=== PATIENT | male | born 1975 | race Caucasian/White ===

== ENCOUNTER 2023-07-27 09:14 | Outpatient (AMB) | payer OTHER, SELFPAY ==
[2023-07-27 09:15] VITALS: BP 112/70; PULSE 69; O2SAT 99; BMI 40.0
--- NOTE | 2023-07-27 09:15 | A.OFFPC_ITS ---
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 Accompanied by: Self / Same As Patient Allergies No Known Allergies Allergy (Verified 07/27/23 09:26) Medication List - Last Reconciled 07/27/23 by CAITLIN Milian alprazolam 0.5 mg PO DAILY 30 days citalopram 40 mg PO DAILY 90 days naproxen sodium (Aleve) 220 mg PO BID PRN Tobacco use date assessed: 07/27/23 Dental Screening Dental Screen Date: 07/27/23 Did you have a dental visit in the last 12 months?: Yes Did you have a dental problem in the last 6 months where you did not have access to dental care?: No Was dental information given to patient?: Patient has dentist HPI HPI Comments History of Present Illness Details 48-year-old male past medical history si gnificant for GERD, lumbar degenerative disc disease, impaired glucose tolerance generalized anxiety disorder, chronic tear of right biceps muscle. Patient last seen in April 2022, patient presents today for physical exam. Patient denies chest pain, palpitations, shortness of breath and syncope. Denies any acute concerns. Patient requesting refill on alprazolam that he uses as needed for anxiety, by Dr. Kingsley in 2020. Refill sent. Patient offered referral to counseling, however he declines this time. Eye exam: Due in October 2023 Colonoscopy: Referral entered for Gastroenterology. Patient up-to-date on recommended immunizations. [facility] Medical History (Updated 07/27/23 @ 09:42 by CAITLIN Milian) Tear of right biceps muscle Generalized anxiety disorder GERD (gastroesophageal reflux disease) Obesity (BMI 30-39.9) Lumbar degenerative disc disease Surgical History S/P panniculectomy History of hip surgery Hx of tonsillectomy S/P left inguinal herniorrhaphy Family History Mother COPD (chronic obstructive pulmonary disease) Father No problems noted. Maternal Grandmother Breast cancer Lung cancer Maternal Grandfather Leukemia Paternal Grandmother COPD (chronic obstructive pulmonary disease) Other Mental health disorder Social History Housing: House Alcohol intake: current Alcohol intake frequency: a few times a week Alcohol type: beer Patient Tobacco Use Status: Never used Tobacco e-Cigarette/Vaping Use: Never Used Second Hand Smoke Exposure: Yes service: No Current occupational status: employed Cognitive needs: No Hearing needs: No Vision needs: No Questionnaire PHQ-9 Over the last 2 weeks, how often have you been bothered by any of the following problems? 1. Little interest or pleasure in doing things: not at all 2. Feeling down, depressed, or hopeless: not at all 3. Trouble falling or staying asleep, or sleeping too much: not at all 4. Feeling tired or having little energy: not at all 5. Poor appetite or overeating: not at all 6. Feeling bad about yourself - or that you are a failure or have let yourself or your family down: not at all 7. Trouble concentrating on things, such as reading the newspaper or watching television: not at all 8. Moving or speaking so slowly that other people could have noticed. Or the opposite - being so fidgety or restless that you have been moving around a lot more than usual: not at all 9. Thoughts that you would be better off or of hurting yourself in some way: not at all Total score: 0 Depression Screening Interpretation: Negative 21610 - PHQ-9 Billing: Yes Source: Developed by Drs. Rohan Bueno, Luda Nails, Sincere Salazar and colleagues, with an educational avinash from [employer]. Thrive Questionnaire Date Thrive assessed: 07/27/23 I am a: Patient What is your living situation today?: I have a steady place to live Within the past 12 months, did the food you bought not last and you didn't have the money to get more?: Never true Within the past 12 months, did you worry whether your food would run out before you got money to buy more?: Never true Do you have trouble paying for medicines?: No Do you have trouble getting transportation to medical appointments?: No Do you have trouble paying your heating and electricity bill?: No Do you have trouble taking care of your child, family member or friend?: No Do you have trouble with day-to-day activities such as bathing, preparing meals, shopping, managing finances, etc.?: No Are you currently unemployed and looking for a job?: No Are you interested in more education?: No Please select the resources that you would like help with: None Currently or been in a relationship where the following occur: no concerns reported AUDIT C Alcohol Use Questionnaire (AUDIT-C) 1. How often do you have a drink containing alcohol?: 2-3 times a week 2. How many drinks containing alcohol do you have on a typical day when you are drinking?: 1 or 2 3. How often do you have six or more drinks on one occasion?: Never Total Score: 3 LATRELL-7 AMB Questionnaire LATRELL-7 Date LATRELL - 7 assessed: 07/27/23 Feeling nervous, anxious, or on edge: 0 = Not at all Not being able to stop or control worryin = Not at all Worrying too much about different things: 0 = Not at all Trouble relaxin = Not at all Being so restless that it is hard to sit still: 0 = Not at all Becoming easily annoyed or irritable: 0 = Not at all Feeling afraid as if something awful might happen: 0 = Not at all Total LATRELL-7 score (0-4 normal; 5-9 mild; 10-14 moderate; 15-21 severe): 0 Source: Developed by Drs. Rohan Bueno, Luda Nails, Sincere Salazar and colleagues, with an educational avinash from [employer]. LATRELL-7 Assessment Billing LATRELL-7 Assessment Tool: LATRELL-7 Assessment 94971 Review of Systems Const Denies chills, Denies fatigue, Denies fever(s) and Denies poor appetite Eyes Denies no additional complaints ENT Reports Normal hearing present Card Denies chest pain, Denies syncope, Denies rapid heart rate and Denies dyspnea Resp Denies cough and Denies dyspnea GI Denies change in stool character, Denies constipation, Denies diarrhea, Denies nausea and Denies vomiting Denies dysuria, Denies urinary frequency and Denies urinary urgency Neuro Reports Normal hearing present, Denies confusion and Denies syncope Psych Denies confusion Endo Denies fatigue Physical exam (Primary Care) Vital Signs: Last Vital Signs Pulse 69 07/27/23 09:15 BP 112/70 07/27/23 09:15 Pulse Ox 99 07/27/23 09:15 Oxygen Delivery Method Room Air 07/27/23 09:15 BMI result Body Mass Index 40.0 Tobacco/Smoking Status: Tobacco use Status Tobacco use date assessed 07/27/23 07/27/23 09:16 Patient Tobacco Use Status Never used Tobacco 07/27/23 09:16 e-Cigarette/Vaping Use Never Used 07/27/23 09:16 PHQ-9: PHQ-9 Score PHQ-9: Total score 0 07/27/23 09:17 Depression Screening Interpretation: Negative Thrive Assessment: Date of Thrive Assessment Date Thrive assessed 07/27/23 07/27/23 09:17 Currently or been in a relationship where the following occur: no concerns reported Const General: No confusion Orientation/consciousness: No confusion HENMT Head: Yes normocephalic and Yes atraumatic Ears: external ears normal and TM's normal bilaterally General nose exam: Normal external nose present and Normal nasal mucous membranes and turbinates present Face and sinus: Yes normal facial exam and Yes sinuses nontender Mouth: moist mucous membranes Throat: Yes tonsils normal Eyes Conjunctivae: conjunctivae normal Sclerae: sclerae normal Pupils: Equal, round and reactive pupils present and Pupils normal by confrontation EOM: EOMs intact bilaterally Direct Ophthalmoscopy: normal light reflex Neck Neck: Yes no lymphadenopathy and Yes supple Thyroid: Thyroid normal Chest Chest palpation & inspection: normal inspection of the chest Resp Effort & Inspection: normal respiratory effort Auscultation: clear to auscultation bilaterally, no crackles, no rhonchi and no wheezes Cardio Rate: regular rate Rhythm: regular rhythm Peripheral pulses: radial pulses present and dorsalis pedis present GI Inspection: Yes normal to inspection Palpation (GI): Soft to palpation, nontender and No hepatosplenomegaly present Auscultation: normoactive bowel sounds Skin General skin exam: no rashes or lesions noted Neuro General: No confusion Cranial nerves: Yes Equal, round and reactive pupils present and Yes Normal hearing present Cognition (Neuro): normal cognition Gait exam (Neuro): Normal gait present Motor exam (neuro): 5/5 motor strength present throughout Deep tendon reflexes (DTR's): Right brachioradialis reflex intensity grade: 2+, Left brachioradialis reflex intensity grade: 2+, Right patellar reflex intensity grade: 2+ and Left patellar reflex intensity grade: 2+ Extrem General: No edema Assessment and Plan Assessment & Plan (1) Colon cancer screening: Code(s): Z12.11 - Encounter for screening for malignant neoplasm of colon Plan: Referral entered to gastroenterology. (2) Impaired glucose tolerance: Code(s): R73.02 - Impaired glucose tolerance (oral) Plan: Fasting glucose ordered. (3) Generalized anxiety disorder: Comment: Declined any referral for counseling August Code(s): F41.1 - Generalized anxiety disorder Plan: Continue on citalopram 40 mg daily. Refill sent on alprazolam 0.5 mg daily as needed QT 30, 0 refills Offered referral for counseling however patient declines this time. (4) Annual physical exam: Code(s): Z00.00 - Encounter for general adult medical examination without abnormal findings Plan: Follow-up in 1 year for physical exam. (5) Obesity (BMI 30-39.9): Code(s): E66.9 - Obesity, unspecified Plan: Encouraged diet and exercise to reduce BMI. Offered referral for weight management program, however patient declines at this time. Plan Follow-up in 1 year. Orders: Orders Comprehensive Met. Panel Today R73.02 - Impaired glucose tolerance (oral) Lipid Panel Today Z13.220 - Encounter for screening for lipoid disorders TSH reflex Free T4 Today Z13.29 - Encounter for screening for other suspected endocrine disorder Complete Blood Count Auto Diff Today Z13.0 - Encounter for screening for diseases of the blood and blood-forming organs and certain disorders involving the immune mechanism Referrals Gastroenterology Referral Z12.11 - Encounter for screening for malignant neoplasm of colon Medications: Refilled alprazolam 0.5 mg PO DAILY 30 days 30 tabs 0RF F41.1 - Generalized anxiety disorder Coding Level of Care Code Est Pt Prev Care 40-64y(35113) Diagnoses Colon cancer screening Z12.11 Impaired glucose tolerance R73.02 Generalized anxiety disorder F41.1 Annual physical exam Z00.00 Obesity (BMI 30-39.9) E66.9 Additional Codes LATRELL-7 Assessment Billing - LATRELL-7 Assessment Tool: LATRELL-7 Assessment 52492 ([id number])
== END 2023-07-27 09:37 | disposition home or self-care (01) ==
PROVIDERS: PCP Internal Medicine; Visit Provider Nurse Practitioner Family
DX: Z00.00 Encounter for general adult medical examination without abnormal findings (principal); R73.02 Impaired glucose tolerance (oral); E66.9 Obesity, unspecified; Z68.41 Body mass index [BMI] 40.0-44.9, adult; F41.1 Generalized anxiety disorder
CPT/HCPCS: 99396

== ENCOUNTER 2023-09-15 07:51 | Outpatient (AMB) | payer OTHER, SELFPAY ==
--- NOTE | 2023-09-15 08:00 | MHC.OFFVIS ---
Intake Vital Signs 09/15/23 08:01 Height 5 ft 10 in Weight 283 lb BMI 40.6 BP 140/83 H Blood Pressure Location Lt brachial Position Sitting Pulse 79 Intake Visit Reasons: Colonoscopy Screening Intake Note: Patient new consult for 1st pre colonoscopy. Patient cc: acid reflex on and off. Denies any other GI issues. Control Room Operator Required: No Accompanied by: Self / Same As Patient Allergies No Known Allergies Allergy (Verified 09/15/23 07:59) Medication List - Last Reconciled 09/15/23 by Destini Love PA-C alprazolam 0.5 mg PO DAILY 30 days citalopram 40 mg PO DAILY 90 days naproxen sodium (Aleve) 220 mg PO BID PRN HPI HPI Comments History of Present Illness Details A 48 y/o male - referred for screening colonoscopy- normal bowel pattern- Appetite good-mild heartburn-if he over eats-otherwise he has no issues No respiratory or cardiac issues No N/V/D abdominal pain, fever or chills PFSH Medical History Tear of right biceps muscle Generalized anxiety disorder GERD (gastroesophageal reflux disease) Obesity (BMI 30-39.9) Lumbar degenerative disc disease Surgical History S/P panniculectomy History of hip surgery Hx of tonsillectomy S/P left inguinal herniorrhaphy Family History Mother COPD (chronic obstructive pulmonary disease) Father No problems noted. Maternal Grandmother Breast cancer Lung cancer Maternal Grandfather Leukemia Paternal Grandmother COPD (chronic obstructive pulmonary disease) Other Mental health disorder Social History Housing: House Alcohol intake: current Alcohol intake frequency: a few times a week Alcohol type: beer Patient Tobacco Use Status: Never used Tobacco e-Cigarette/Vaping Use: Never Used Second Hand Smoke Exposure: Yes service: No Current occupational status: employed Cognitive needs: No Hearing needs: No Vision needs: No Review of Systems Const All systems reviewed & are unremarkable except as noted in HPI and below Card Denies chest pain and Denies dyspnea Resp Denies dyspnea GI Denies change in bowel habits and Denies heartburn Physical Exam Vital Signs: Last Vital Signs Pulse 79 09/15/23 08:01 BP 140/83 H 09/15/23 08:01 BMI result Body Mass Index 40.6 Const General: cooperative, healthy appearing, comfortable and no acute distress Orientation/consciousness: patient oriented x3 Limitations: no limitations Eyes Sclerae: sclerae normal Resp Effort & Inspection: normal respiratory effort and able to speak in complete sentences Auscultation: clear to auscultation bilaterally, no rales, no rhonchi and no wheezes Cardio Rate: regular rate Rhythm: regular rhythm Heart sounds: S1 normal heart sound present and S2 normal heart sound present GI Palpation (GI): Soft to palpation and nontender Auscultation: normal bowel sounds Skin General skin exam: no rashes or lesions noted Neuro General: patient oriented x3 Extrem General: Yes full ROM Psych Appearance: grossly normal and well kempt Mental Status: mental status grossly normal Speech and movement: Normal speech and movement present and Clear speech present Affect: normal affect Attitude: cooperative Thought process: Normal thought process present Thought content: Normal thought content present Insight: Good insight present (Psych) Judgement: Good judgement present (Psych) Assessment & Plan Assessment & Plan (1) Colon cancer screening: Comment: No GI or general complaints No family history GI cancer Code(s): Z12.11 - Encounter for screening for malignant neoplasm of colon Plan: Index screening colonoscopy Discussed procedure, rare risks, need for escorted, review prep (2) GERD (gastroesophageal reflux disease): Comment: only when over eats- no meds- Code(s): K21.9 - Gastro-esophageal reflux disease without esophagitis Plan Index screening MG prep= reviewed literature given Orders: Orders Colonoscopy - GI Use Only Today Z12.11 - Encounter for screening for malignant neoplasm of colon Medications: New bisacodyl (Dulcolax (bisacodyl)) Day before procedure, prep day Take 4 tablets by mouth upon awakening followed by large glass of water 20 mg (4 x 5 mg) PO ONCE 1 day PRN 4 tabs 0RF colonoscopy prep Z12.11 - Encounter for screening for malignant neoplasm of colon polyethylene glycol 3350 (Miralax) Take as directed by mouth the day before your procedure. 238 grams PO ONCE 1 day 238 grams 0RF laxative effect Patient Instructions: A very [id number]old male no GI concerns, no family history GI cancers Rare heartburn if he over eats, he is aware of known culprits and avoids. Index screening colonoscopy MG prep Encouraged to call questions or concerns We appreciate the opportunity assist in the care pleasant Dali Coding Level of Care Code New Pt Level 3 (48781) Diagnoses Colon cancer screening Z12.11 GERD (gastroesophageal reflux disease) K21.9 Time Spent (min) 30
[2023-09-15 08:01] VITALS: BP 140/83; PULSE 79; BMI 40.6
== END 2023-09-15 09:01 | disposition home or self-care (01) ==
PROVIDERS: PCP Internal Medicine; Visit Provider Physician Assistant
DX: Z01.818 Encounter for other preprocedural examination (principal); Z12.11 Encounter for screening for malignant neoplasm of colon; K21.9 Gastro-esophageal reflux disease without esophagitis
CPT/HCPCS: S0285

== ENCOUNTER → 2023-09-15 07:51 | Outpatient (BNVA) | payer OTHER, SELFPAY | PROVIDERS: PCP Internal Medicine; Visit Provider Physician Assistant ==

== ENCOUNTER 2024-02-21 08:08 | Day surgery (SDC) | payer OTHER, SELFPAY ==
[2024-02-21 08:37] VITALS: BMI 33.7
[2024-02-21 08:58] VITALS: BP 127/84; PULSE 60; RESP 16; TEMP 36.3; O2SAT 98
[2024-02-21] MEDS: Lactated Ringers 1,000 ML 80 ML IVCONT (09:01)
--- NOTE | 2024-02-21 09:01 | MHC.SHP ---
Pre-Procedural Eval Section A - 24 Hr Update-Section A only Date of Service: 02/21/24 The patient is an INPATIENT: No The patient has been examined within 24 hours of the surgical procedure. The History & Physical has been completed within 30 days and I have reviewed it.: No Section B - Complete if H&P > 30 days Chief Complaint: Colon cancer screening Relevant Family History (Specify if Yes): No Relevant Social History: None Present Medications: see Short Stay Collaborative assessment Medical History: Significant History (Tear of right biceps muscle Generalized anxiety disorder GERD (gastroesophageal reflux disease) Obesity (BMI 30-39.9) Lumbar degenerative disc disease) History of Previous Operations: Relevant previous surgery/procedure and date(s) (S/P panniculectomy History of hip surgery Hx of tonsillectomy S/P left inguinal herniorrhaphy) Allergies: Allergies Allergy/AdvReac Type Severity Reaction Status Date / Time No Known Allergies Allergy Verified 09/15/23 07:59 Review of Systems Sugical H&P ROS: Negative: Constitution, Cardiovascular, Respiratory and Gastrointestinal Exam Surgical H&P Exam: Normal: Heart, Normal: Lungs, Normal: Extremities and Normal: Abdomen Plan Diagnosis/Plan: Unchanged I have reviewed the history and physical and performed a pertinent physical examination on my patient. No changes have occurred unless specified. Time Spent With Patient Time: Total time managing care of this patient today ____ minutes.
--- NOTE | 2024-02-21 09:02 | HO.ANESPROP2 ---
[facility] Active Problems Active Problems: All Active Problems Tear of right biceps muscle (Acute) Colon cancer screening (Acute) Annual physical exam (Acute) Impaired glucose tolerance (Acute) Obesity (BMI 30-39.9) (Acute) Generalized anxiety disorder (Acute) GERD (gastroesophageal reflux disease) (Acute) Lumbar degenerative disc disease (Acute) Past Medical History Medical History Tear of right biceps muscle Generalized anxiety disorder GERD (gastroesophageal reflux disease) Obesity (BMI 30-39.9) Lumbar degenerative disc disease Family History Family History Mother COPD (chronic obstructive pulmonary disease) Father No problems noted. Maternal Grandmother Breast cancer Lung cancer Maternal Grandfather Leukemia Paternal Grandmother COPD (chronic obstructive pulmonary disease) Other Mental health disorder Family history of problems with anesthesia: No Surgical History Surgical History S/P panniculectomy History of hip surgery Hx of tonsillectomy S/P left inguinal herniorrhaphy History of Problems with Anesthesia: No Social History Social History Housing: House Alcohol intake: current Alcohol intake frequency: 0-2 drinks per day Alcohol type: beer Patient Tobacco Use Status: Never used Tobacco e-Cigarette/Vaping Use: Never Used Second Hand Smoke Exposure: Yes Use of substances other than those prescribed or required for medical reasons: No Are you DNR?: No Advance Directives: No Advance Directives Information Provided: Yes service: No Current occupational status: employed Cognitive needs: No Hearing needs: No Vision needs: No Meds Allergies Allergy/AdvReac Type Severity Reaction Status Date / Time No Known Allergies Allergy Verified 09/15/23 07:59 Active Medications: Current Medications Lactated Ringer's (Lr) 1,000 mls @ 80 mls/hr IVCONT .[id number] GALINDO Last Admin: 02/21/24 09:01 Dose: 80 mls/hr Home Medications ?Medication ?Instructions ?Recorded ?Confirmed ?Last Taken ?Type naproxen sodium 220 mg capsule 220 mg PO BID PRN 04/08/22 07/27/23 Unknown History (Aleve) Exam Height,Weight and Vital Signs: Height 5 ft 10 in Weight 106.594 kg Last Vital Signs Temp 97.3 F 02/21/24 08:58 Pulse 60 02/21/24 08:58 Resp 16 02/21/24 08:58 BP 127/84 02/21/24 08:58 Pulse Ox 98 02/21/24 08:58 O2 Del Method Room Air 02/21/24 08:58 Airway Mallampati Class: II (one crown upper left) TM Dist: >3cm Neck ROM: Full Heart: rrr Lungs: cta Assessment and Plan Assessment Anesthesia Assessment: Anesthesia Plan Discussed and Chart Reviewed Final Anesthetic Review Family History of Problems with Anesthesia: No History of Problems with Anesthesia: No NPO: Yes ASA Class: II Final Preanesthetic Review: No Changes in Pt Med Stat, Meds/Allgs Chart Reviewed and Consent Obtained/Reviewed Patient Risk: Low Procedure Risk: Low Anesthetic Plan Anesthetic Plan: MAC: Disposition: Standard PACU
--- NOTE | 2024-02-21 09:08 | P.OP_ITS ---
Operative Note Operative Note Date of Service: 02/21/24 Narrative: COLONOSCOPY TILL CECUM WITH BIOPSIES, SNARE POLYPECTOMY, SUBMUCOSAL INJECTION AND HEMOCLIP PLACEMENT Pre-op diagnosis: Colon cancer screening (First colonoscopy). Post-op diagnosis:? Colon polyps, Diverticulosis, hemorrhoids Endoscopist:? Lexus Garcia MD Anesthesia:?MAC Consent: Indications for the procedure and potential complications of bleeding, perforation, reaction to medications and missed diagnosis were discussed with the patient and informed consent was obtained. Instrument: Olympus CF H 190 L variable stiffness adult colonoscope Monitoring: Vital signs and clinical assessment, intermittent blood pressure monitoring, continuous EKG monitoring, Pulse oximetry and Carbon Dioxide monitoring were done throughout the procedure. Please see anesthesia flowsheet. Colon withdrawl time was 30 minutes. Procedure: The patient was placed in the left lateral decubitis position and pre-procedure medications were administered. After a digital rectal examination of the ano-rectum, the video colonoscope was inserted into the rectum and advanced through the colon to the cecum. The colonoscope was slowly withdrawn in a retrograde panoramic fashion and the colon mucosa was carefully examined including a retroflexed view of the rectum. Findings and interventions are described below. Procedure Difficulty: without difficulty Findings: Terminal Ileum: Not evaluated Cecum: A 12-15 mm sessile polyp - removed with a hot snare. Polypectomy site was closed with 1 hemoclip. Ascending Colon: A 9-10 mm sessile polyp in the distal AC - removed with a hot snare. Moderate scattered diverticulosis throughout the entire colon. Transverse Colon: A 4-5 mm sessile polyp - removed with a cold biopsy Moderate scattered diverticulosis throughout the entire colon. Descending Colon: A 7-8 mm sessile polyp - removed with a cold snare Moderate scattered diverticulosis throughout the entire colon. Sigmoid Colon: A 2.5 to 3 cms pedunculated polyp at 40 cms - removed with a hot snare. Polypectomy site was closed with 1 hemoclip and marked by Meme ink. Moderate diverticulosis Rectum: A 10-12 mm sessile polyp - removed with a hot snare. Ano-rectum: Moderate internal hemorrhoids Colon preparation: Good after some irrigation. [place] Bowel Preparation Scale Right colon; 2 Transverse colon: 2 Left colon; 2 (0 = Unprepared colon segment with mucosa not seen due to solid stool that cannot be cleared. 1 = Portion of mucosa of the colon segment seen, but other areas of the colon segment not well seen due to staining, residual stool and/or opaque liquid. 2 = Minor amount of residual staining, small fragments of stool and/or opaque liquid, but mucosa of colon segment seen well. 3 = Entire mucosa of colon segment seen well with no residual staining, small fragments of stool or opaque liquid) Impression and Post Procedure Diagnosis: Colonoscopy Findings: On large, two medium sized and three small polyps were removed Moderate diverticulosis seen in the entire colon Moderate hemorrhoids on retroflexed exam. Plan: I will send a letter with pathology results. Repeat Colonoscopy in 6 to 8 months if polyps are adenomatous and 10 year if polyps are hyperplastic ( follow-up colonoscopy scheduled on 08/21/2024). Above findings were reviewed with the patient and relevant handouts were given and the discharge area. BIOPSIES SHOWED: A. ecum, polypectomy: Fragments of tubular adenoma; negative for high-grade dysplasia or carcinoma. B. Colon, ascending, polypectomy: Fragments of tubular adenoma; negative for high-grade dysplasia or carcinoma. C. Colon, transverse, polypectomy: Tubular adenoma; negative for high-grade dysplasia or carcinoma. D. Colon, descending, polypectomy: Tubular adenoma; negative for high-grade dysplasia or carcinoma. E. Colon, 40 cm, polypectomy: Tubulovillous adenoma; negative for high-grade dysplasia or carcinoma. F. Rectum, polypectomy: Tubular adenoma; negative for high-grade dysplasia or carcinoma
[2024-02-21 10:39] VITALS: BP 110/74; PULSE 56; RESP 16; TEMP 36.1; O2SAT 99
[2024-02-21 10:54] VITALS: BP 114/73; PULSE 62; RESP 15; TEMP 36.3; O2SAT 99
== END 2024-02-21 11:21 | disposition home or self-care (01) ==
PROVIDERS: PCP Internal Medicine; Visit Provider Internal Medicine Gastroenterology
PROC: 0DJD8ZZ Inspection of Lower Intestinal Tract, Via Natural or Artificial Opening Endoscopic (ICD-10-PCS; CPT 45378; principal; 2024-02-21 10:10)
DX: Z12.11 Encounter for screening for malignant neoplasm of colon (principal); D12.0 Benign neoplasm of cecum; D12.2 Benign neoplasm of ascending colon; D12.3 Benign neoplasm of transverse colon; D12.4 Benign neoplasm of descending colon; D12.5 Benign neoplasm of sigmoid colon; D12.8 Benign neoplasm of rectum; K57.30 Diverticulosis of large intestine without perforation or abscess without bleeding; K64.8 Other hemorrhoids; K21.9 Gastro-esophageal reflux disease without esophagitis; E66.9 Obesity, unspecified; Z68.41 Body mass index [BMI] 40.0-44.9, adult; F41.1 Generalized anxiety disorder; Z79.1 Long term (current) use of non-steroidal anti-inflammatories (NSAID); Z79.899 Other long term (current) drug therapy; Z98.890 Other specified postprocedural states
CPT/HCPCS: 45385; 45380; 45381; 88305; J2704

== ENCOUNTER → 2024-02-21 08:08 | Outpatient (BNV) | payer OTHER, SELFPAY | PROVIDERS: PCP Internal Medicine; Visit Provider Internal Medicine Gastroenterology | DX: Z12.11 Encounter for screening for malignant neoplasm of colon (principal); D12.3 Benign neoplasm of transverse colon; D12.0 Benign neoplasm of cecum; D12.4 Benign neoplasm of descending colon; D12.2 Benign neoplasm of ascending colon; K57.90 Diverticulosis of intestine, part unspecified, without perforation or abscess without bleeding; K64.8 Other hemorrhoids; K63.5 Polyp of colon | CPT/HCPCS: 45380; 45381; 45385 ==

== ENCOUNTER 2024-07-28 08:43 | Outpatient (AMB) | payer OTHER, SELFPAY ==
--- NOTE | 2024-07-28 08:46 | A.OFFPC_ITS ---
Vital Signs 07/28/24 08:48 Height 5 ft 10 in Weight 237 lb 4 oz BMI 34.0 BP 110/74 Blood Pressure Location Lt brachial Position Sitting Pulse 61 Pulse Source Pulse Oximeter Pulse Oximetry (%) 97 Oxygen Delivery Method Room Air Intake Visit Reasons: PE Intake Note: Patient is here today for a physical. 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: Not Required per policy Accompanied by: Self / Same As Patient Allergies acetaminophen [From Percocet] Allergy (Intermediate, Unverified 07/28/24 09:16) pruritus oxycodone [From Percocet] Allergy (Intermediate, Unverified 07/28/24 09:16) pruritus Medication List - Last Reconciled 07/28/24 by Rona Kingsley MD alprazolam 0.5 mg PO DAILY 30 days citalopram 40 mg PO DAILY 90 days naproxen sodium (Aleve) 220 mg PO BID PRN Tobacco use date assessed: 07/28/24 Dental Screening Dental Screen Date: 07/28/24 Did you have a dental visit in the last 12 months?: Yes Did you have a dental problem in the last 6 months where you did not have access to dental care?: No Was dental information given to patient?: Patient has dentist HPI PE HPI Details 49-year-old obese male with impaired glu cose tolerance and generalized anxiety disorder last seen in 07/21/2023. Patient is here for physical exam. Colonoscopy done in January 2024 and was advised repeat in 6-8 months. [facility] Medical History (Updated 07/28/24 @ 09:39 by Rona Kingsley MD) Colon cancer screening Tear of right biceps muscle Generalized anxiety disorder GERD (gastroesophageal reflux disease) Obesity (BMI 30-39.9) Lumbar degenerative disc disease Surgical History S/P panniculectomy History of hip surgery Hx of tonsillectomy S/P left inguinal herniorrhaphy Family History Mother COPD (chronic obstructive pulmonary disease) Father No problems noted. Maternal Grandmother Breast cancer Lung cancer Maternal Grandfather Leukemia Paternal Grandmother COPD (chronic obstructive pulmonary disease) Other Mental health disorder Social History (Updated 07/28/24 @ 09:18 by Rona Kingsley MD) Housing: House Alcohol intake: current Alcohol intake frequency: 0-2 drinks per day Alcohol type: beer Comment: 4 days a week 2 drinks Patient Tobacco Use Status: Never used Tobacco e-Cigarette/Vaping Use: Never Used Second Hand Smoke Exposure: Yes service: No Current occupational status: employed Cognitive needs: No Hearing needs: No Vision needs: Yes (Glasses/Contacts) Questionnaire PHQ-9 Over the last 2 weeks, how often have you been bothered by any of the following problems? 1. Little interest or pleasure in doing things: not at all 2. Feeling down, depressed, or hopeless: more than half the days 3. Trouble falling or staying asleep, or sleeping too much: nearly every day 4. Feeling tired or having little energy: not at all 5. Poor appetite or overeating: not at all 6. Feeling bad about yourself - or that you are a failure or have let yourself or your family down: not at all 7. Trouble concentrating on things, such as reading the newspaper or watching television: not at all 8. Moving or speaking so slowly that other people could have noticed. Or the opposite - being so fidgety or restless that you have been moving around a lot more than usual: not at all 9. Thoughts that you would be better off or of hurting yourself in some way: not at all Total score: 5 Depression Screening Interpretation: Positive Depression Screening Done: Yes Source: Developed by Drs. Rohan Bueno, Luda Nails, Sincere Salazar and colleagues, with an educational avinash from [employer]. Thrive Questionnaire Date Thrive assessed: 07/28/24 I am a: Patient What is your living situation today?: I have a steady place to live Within the past 12 months, did the food you bought not last and you didn't have the money to get more?: Never true Within the past 12 months, did you worry whether your food would run out before you got money to buy more?: Never true Do you have trouble paying for medicines?: No Do you have trouble getting transportation to medical appointments?: No Do you have trouble paying your heating and electricity bill?: No Do you have trouble taking care of your child, family member or friend?: No Do you have trouble with day-to-day activities such as bathing, preparing meals, shopping, managing finances, etc.?: No Are you currently unemployed and looking for a job?: No Are you interested in more education?: No Please select the resources that you would like help with: None Currently or been in a relationship where the following occur: No concerns reported THRIVE Score: 0 AUDIT C Alcohol Use Questionnaire (AUDIT-C) 1. How often do you have a drink containing alcohol?: 2-3 times a week 2. How many drinks containing alcohol do you have on a typical day when you are drinking?: 3 or 4 3. How often do you have six or more drinks on one occasion?: Less than monthly Total Score: 5 LATRELL-7 AMB Questionnaire LATRELL-7 Date LATRELL - 7 assessed: 07/28/24 Feeling nervous, anxious, or on edge: 1 = Several days Not being able to stop or control worryin = Several days Worrying too much about different things: 1 = Several days Trouble relaxin = Several days Being so restless that it is hard to sit still: 1 = Several days Becoming easily annoyed or irritable: 1 = Several days Feeling afraid as if something awful might happen: 0 = Not at all Total LATRELL-7 score (0-4 normal; 5-9 mild; 10-14 moderate; 15-21 severe): 6 Source: Developed by Drs. Rohan Bueno, Luda Nails, Sincere Salazar and colleagues, with an educational avinash from [employer]. Review of Systems Const Denies poor appetite and Denies weakness Eyes Denies no additional complaints ENT Reports Normal hearing present, Denies dizziness, Denies nasal congestion, Denies tinnitus and Denies sore throat Card Denies chest pain, Denies syncope, Denies rapid heart rate and Denies dyspnea Resp Denies cough and Denies dyspnea GI Denies change in stool character, Reports constipation, Denies diarrhea, Denies nausea and Denies vomiting Denies dysuria and Denies urinary frequency Neuro Reports Normal hearing present, Denies confusion, Denies dizziness, Denies syncope and Denies weakness Psych Denies confusion Physical exam (Primary Care) Vital Signs: Last Vital Signs Pulse 61 07/28/24 08:48 BP 110/74 07/28/24 08:48 Pulse Ox 97 07/28/24 08:48 Oxygen Delivery Method Room Air 07/28/24 08:48 BMI result Body Mass Index 34.0 Tobacco/Smoking Status: Tobacco use Status Tobacco use date assessed 07/28/24 07/28/24 08:54 Patient Tobacco Use Status Never used Tobacco 07/28/24 08:47 e-Cigarette/Vaping Use Never Used 07/28/24 08:47 PHQ-9: PHQ-9 Score PHQ-9: Total score 5 07/28/24 08:54 Depression Screening Interpretation: Positive Thrive Assessment: Date of Thrive Assessment Date Thrive assessed 07/28/24 07/28/24 08:47 Currently or been in a relationship where the following occur: No concerns reported Const General: No confusion Orientation/consciousness: No confusion HENMT Other: impacted cerument L , TM on tight is fine Head: Yes normocephalic Ears: external ears normal Face and sinus: Yes normal facial exam Mouth: moist mucous membranes Throat: Yes tonsils normal Eyes Conjunctivae: conjunctivae normal Pupils: Equal, round and reactive pupils present and Pupil accommodation reflex normal Direct Ophthalmoscopy: normal light reflex Neck Neck: No lymphadenopathy Thyroid: Thyroid normal Chest Chest palpation & inspection: normal inspection of the chest Resp Effort & Inspection: normal respiratory effort and no audible wheezes Auscultation: clear to auscultation bilaterally, no crackles, no wheezes and lung sounds not diminished Cardio Rate: regular rate Rhythm: regular rhythm Peripheral pulses: radial pulses present and dorsalis pedis present GI Palpation (GI): no masses Auscultation: normal bowel sounds and normoactive bowel sounds Rectal Exam - Male: Yes deferred Skin General skin exam: no rashes or lesions noted Rashes: no rashes Neuro General: No confusion Cranial nerves: Yes Equal, round and reactive pupils present and Yes Normal hearing present Cognition (Neuro): normal cognition Gait exam (Neuro): Normal gait present Motor exam (neuro): 5/5 motor strength present throughout Deep tendon reflexes (DTR's): Right brachioradialis reflex intensity grade: 2+, Left brachioradialis reflex intensity grade: 2+, Right patellar reflex intensity grade: 2+ and Left patellar reflex intensity grade: 2+ Extrem General: No edema Office Procedures Cerumen Removal From which ear canal was the cerumen removed: left Removal: irrigation, otoscope w/curette, cerumen loop/spoon and other Notes: patient tolerated procedure well, no complications and ear canal clear [id number] Irrigation/Lavage Assessment and Plan Assessment & Plan (1) Annual physical exam: Code(s): Z00.00 - Encounter for general adult medical examination without abnormal findings Plan: Patient is advised to eat healthy, keep well hydrated, keep active and have adequate sleep. (2) Tubular adenoma of colon: Comment: January 2024 Dr. Garcia Code(s): D12.6 - Benign neoplasm of colon, unspecified Plan: Patient has a scheduled Champ coping in August 2024 (3) Obesity (BMI 30-39.9): Code(s): E66.9 - Obesity, unspecified Plan: Diet and exercise (4) Impaired glucose tolerance: Code(s): R73.02 - Impaired glucose tolerance (oral) Plan: Decrease the amount of carbohydrate intake, pasta, bread, rice and potatoes are all sugar and that is aside from all the sweet stuff, remember that fruits are good but they are Sweet also. Advised retesting of blood (5) Generalized anxiety disorder: Comment: Declined any referral for counseling August Code(s): F41.1 - Generalized anxiety disorder Plan: Continue with present medication (6) GERD (gastroesophageal reflux disease): Comment: only when over eats- no meds- Code(s): K21.9 - Gastro-esophageal reflux disease without esophagitis Plan: Avoid the foods that causes that usually spicy foods, tomato products, juices, coffee, soda and foods that your sensitive to. After eating do not lie down, allow 3-4 hours before in lie down. And keep the head of bed above 30 degrees to avoid the acid from going up. (7) Hearing difficulty: Code(s): H91.90 - Unspecified hearing loss, unspecified ear Plan: Hearing test requested (8) Impacted cerumen of left ear: Code(s): H61.22 - Impacted cerumen, left ear Plan: Irrigation and auto scope andscoop used and TM intact (9) Insomnia: Code(s): G47.00 - Insomnia, unspecified Plan: trazodone prescription sent Orders: Orders Comprehensive Met. Panel Today R73.02 - Impaired glucose tolerance (oral) Complete Blood Count Auto Diff Today F41.1 - Generalized anxiety disorder Prostate Specific Antigen Scr Today F41.1 - Generalized anxiety disorder Lipid Panel Today E78.00 - Pure hypercholesterolemia, unspecified, F41.1 - Generalized anxiety disorder Free T4 (Free Thyroxine) Today F41.1 - Generalized anxiety disorder Vitamin B12 and Folate Today F41.1 - Generalized anxiety disorder Hemoglobin A1c Today R73.02 - Impaired glucose tolerance (oral) Thyroid Stimulating Hormone Today F41.1 - Generalized anxiety disorder Referrals Speech and Hearing Referral H91.90 - Unspecified hearing loss, unspecified ear Medications: New trazodone 50 mg PO BEDTIME PRN 30 tabs 1RF sleep G47.00 - Insomnia, unspecified Refilled alprazolam 0.5 mg PO DAILY 30 days 30 tabs 0RF F41.1 - Generalized anxiety disorder citalopram 40 mg PO DAILY 90 days 90 tabs 1RF G47.00 - Insomnia, unspecified Coding Level of Care Code Est Pt Prev Care 40-64y(27938) Diagnoses Annual physical exam Z00.00 Tubular adenoma of colon D12.6 Obesity (BMI 30-39.9) E66.9 Impaired glucose tolerance R73.02 Generalized anxiety disorder F41.1 GERD (gastroesophageal reflux disease) K21.9 Hearing difficulty H91.90 Impacted cerumen of left ear H61.22 Insomnia G47.00 CPT Codes Office Procedure - CPT: 77848-Pzd Irrigation/Lavage ([id number])
[2024-07-28 08:48] VITALS: BP 110/74; PULSE 61; O2SAT 97; BMI 34.0
== END 2024-07-28 09:45 | disposition home or self-care (01) ==
PROVIDERS: PCP Internal Medicine; Visit Provider Internal Medicine
DX: Z00.00 Encounter for general adult medical examination without abnormal findings (principal); D12.6 Benign neoplasm of colon, unspecified; E66.9 Obesity, unspecified; Z68.34 Body mass index [BMI] 34.0-34.9, adult; H61.22 Impacted cerumen, left ear; R73.02 Impaired glucose tolerance (oral); F41.1 Generalized anxiety disorder; K21.9 Gastro-esophageal reflux disease without esophagitis; H91.93 Unspecified hearing loss, bilateral; G47.00 Insomnia, unspecified

== ENCOUNTER → 2024-07-28 08:43 | Outpatient (BNVA) | payer OTHER, SELFPAY | PROVIDERS: PCP Internal Medicine; Visit Provider Internal Medicine | DX: Z00.01 Encounter for general adult medical examination with abnormal findings (principal); E66.9 Obesity, unspecified; R73.02 Impaired glucose tolerance (oral); F41.1 Generalized anxiety disorder; K21.9 Gastro-esophageal reflux disease without esophagitis; H91.90 Unspecified hearing loss, unspecified ear; H61.22 Impacted cerumen, left ear; G47.00 Insomnia, unspecified; Z86.010 Personal history of colon polyps | CPT/HCPCS: 69210; 96127 ==

== ENCOUNTER 2024-08-04 06:25 | Outpatient (REF) | payer OTHER, SELFPAY ==
[2024-08-04 06:44] LABS: MANUAL DIFF FLAG NO
[2024-08-04 06:58] LABS: Basophils Percent Auto 0.6 % (0-2); Eosinophils Absolute Auto 0.1 X10*3/uL (0.0-0.4); Eosinophils Percent Auto 2.3 % (0-4); Hematocrit 43.4 % (42.0-52.0); Imm Gran Abs Auto 0.02 X10*3/uL (0.00-0.03); Imm Gran Pct Auto 0.4 % (0.0-0.4); Lymphocytes Percent Auto 20.6 % (20-40); Mean Corpuscular HGB Conc 34.6 g/dl (31.0-36.0); Mean Corpuscular Hemoglobin 32.7 pg (27.0-33.0); Mean Corpuscular Volume 94.6 fL (80.0-98.0); Mean Platelet Volume 9.2 fL (9.4-12.4); Monocytes Absolute Auto 0.3 X10*3/uL (0.1-1.2); Neutrophils Absolute Auto 3.4 x10*3/uL (2.0-8.3); Neutrophils Percent Auto 69.1 % (45-73); Platelet Count 249 X10*3/uL (160-400); Red Blood Count 4.59 X10*6/uL (4.60-5.80); Red Cell Distribution Width 13.1 % (11.0-16.0); White Blood Count 4.9 X10*3/uL (4.8-10.8)
[2024-08-04 07:00] LABS: Estimated Average Glucose 105 mg/dL; Hemoglobin A1C 124.2568 umol/L; Hemoglobin A1c % 5.3 % (<6.0); Total Hemoglobin (HGBA1C) 3557.2892 umol/L
[2024-08-04 07:08] LABS: Alanine Aminotransferase 34 U/L (0-40); Albumin Level 4.2 g/dL (3.5-5.0); Alkaline Phosphatase 86 U/L (39-117); Anion Gap 12 (12-20); Aspartate Amino Transferase 31 U/L (5-37); Blood Urea Nitrogen 17 mg/dL (9-16); Calcium 9.6 mg/dL (8.4-10.2); Carbon Dioxide 24 mmol/L (22-29); Chloride 109 mmol/L (96-108); Cholesterol 194 mg/dL (<200); Estimated Glomerular Filt Rate > 60; Glucose Random 97 mg/dL (60-115); HDL Cholesterol 78 mg/dL (>40); LDL Cholesterol Calculated 102 mg/dL (<100); Potassium 4.2 mmol/L (3.3-5.1); Sodium 141 mmol/L (135-145); Total Protein 7.1 g/dL (6.5-8.0); Triglycerides 70 mg/dL (<150)
[2024-08-04 07:22] LABS: Free T4 (Free Thyroxine) 0.81 ng/dL (0.71-1.85); Thyroid Stimulating Hormone 2.75 uIU/mL (0.32-4.0)
[2024-08-04 07:37] LABS: Folate 12.7 ng/mL (> or = 4.0); Vitamin B12 413 pg/mL (200-900)
== END 2024-08-04 06:26 | disposition home or self-care (01) ==
LOC: HO.LAB 06:25
PROVIDERS: PCP Internal Medicine; Visit Provider Internal Medicine
DX: R73.02 Impaired glucose tolerance (oral) (principal); F41.1 Generalized anxiety disorder; E78.00 Pure hypercholesterolemia, unspecified; Z12.5 Encounter for screening for malignant neoplasm of prostate
CPT/HCPCS: 36415; 80053; 80061; 82607; 82746; 83036; 84153; 84439; 84443; 85025

== ENCOUNTER 2024-08-21 07:44 | Day surgery (SDC) | payer OTHER, SELFPAY ==
--- NOTE | 2024-08-17 14:56 | P.CONAN_ITS ---
HPI - Anesthesia Eval Consult details Narrative: 49yo M for Colonoscopy [facility] Active Problems Active Problems: All Active Problems Insomnia (Acute) Impacted cerumen of left ear (Acute) Hearing difficulty (Acute) Tubular adenoma of colon (Acute) Tear of right biceps muscle (Acute) Annual physical exam (Acute) Impaired glucose tolerance (Acute) Obesity (BMI 30-39.9) (Acute) Generalized anxiety disorder (Acute) GERD (gastroesophageal reflux disease) (Acute) Lumbar degenerative disc disease (Acute) Past Medical History Medical History (Updated 07/28/24 @ 09:39 by Rona Kingsley MD) Colon cancer screening Tear of right biceps muscle Generalized anxiety disorder GERD (gastroesophageal reflux disease) Obesity (BMI 30-39.9) Lumbar degenerative disc disease Family History Family History Mother COPD (chronic obstructive pulmonary disease) Father No problems noted. Maternal Grandmother Breast cancer Lung cancer Maternal Grandfather Leukemia Paternal Grandmother COPD (chronic obstructive pulmonary disease) Other Mental health disorder Family history of problems with anesthesia: No Surgical History Surgical History S/P panniculectomy History of hip surgery Hx of tonsillectomy S/P left inguinal herniorrhaphy History of Problems with Anesthesia: No Social History Social History (Updated 07/28/24 @ 09:18 by Rona Kingsley MD) Housing: House Alcohol intake: current Alcohol intake frequency: holidays/special occasions only Alcohol type: beer Comment: 4 days a week 2 drinks Patient Tobacco Use Status: Never used Tobacco e-Cigarette/Vaping Use: Never Used Second Hand Smoke Exposure: No Use of substances other than those prescribed or required for medical reasons: No Are you DNR?: No Advance Directives: No Advance Directives Information Provided: Yes Advance Directives on File: No service: No Current occupational status: employed Cognitive needs: No Hearing needs: No Vision needs: Yes (Glasses/Contacts) Meds Allergies Allergy/AdvReac Type Severity Reaction Status Date / Time acetaminophen [From Percocet] Allergy Intermediate pruritus Verified 08/21/24 09:09 oxycodone [From Percocet] Allergy Intermediate pruritus Verified 08/21/24 09:09 Home Medications ?Medication ?Instructions ?Recorded ?Confirmed ?Last Taken ?Type naproxen sodium 220 mg capsule 220 mg PO BID PRN Pain 04/08/22 08/21/24 Unknown History (Jaron) Assessment and Plan Assessment Anesthesia Assessment: Chart Reviewed Final Anesthetic Review Family History of Problems with Anesthesia: No History of Problems with Anesthesia: No
[2024-08-21 08:59] VITALS: BP 116/79; PULSE 58; RESP 16; TEMP 36.3; O2SAT 98; BMI 34.0
[2024-08-21] MEDS: Lactated Ringers 1,000 ML 100 ML IVCONT (09:08)
--- NOTE | 2024-08-21 09:16 | MHC.SHP ---
Pre-Procedural Eval Section A - 24 Hr Update-Section A only Date of Service: 08/21/24 The patient is an INPATIENT: No The patient has been examined within 24 hours of the surgical procedure. The History & Physical has been completed within 30 days and I have reviewed it.: No Section B - Complete if H&P > 30 days Chief Complaint: Surveillance for colon polyps Relevant Social History: None Present Medications: see Short Stay Collaborative assessment Medical History: Significant History (Tear of right biceps muscle Generalized anxiety disorder GERD (gastroesophageal reflux disease) Obesity (BMI 30-39.9) Lumbar degenerative disc disease) History of Previous Operations: Relevant previous surgery/procedure and date(s) (S/P panniculectomy History of hip surgery Hx of tonsillectomy S/P left inguinal herniorrhaphy) Allergies: Allergies Allergy/AdvReac Type Severity Reaction Status Date / Time acetaminophen [From Percocet] Allergy Intermediate pruritus Verified 08/21/24 09:09 oxycodone [From Percocet] Allergy Intermediate pruritus Verified 08/21/24 09:09 Review of Systems Sugical H&P ROS: Negative: Constitution, Cardiovascular, Respiratory and Gastrointestinal Exam Surgical H&P Exam: Normal: Heart, Normal: Lungs, Normal: Extremities and Normal: Abdomen Plan Diagnosis/Plan: Change (proceed with colonoscopy) I have reviewed the history and physical and performed a pertinent physical examination on my patient. No changes have occurred unless specified. Time Spent With Patient Time: Total time managing care of this patient today ____ minutes.
--- NOTE | 2024-08-21 10:41 | P.OPN-COLO_ITS ---
Colonoscopy Operative Note Operative Note Date of Service: 08/21/24 Narrative: COLONOSCOPY TILL CECUM WITH BIOPSIES, SNARE POLYPECTOMY, SUBMUCOSAL INJECTION AND HEMOCLIP PLACEMENT Pre-op diagnosis: Surveillance of colon polyps. Post-op diagnosis:? colon polyps, Diverticulosis, hemorrhoids Endoscopist:? Lexus Garcia MD Anesthesia:?MAC Consent: Indications for the procedure and potential complications of bleeding, perforation, reaction to medications and missed diagnosis were discussed with the patient and informed consent was obtained. Instrument: Olympus CF H 190 L variable stiffness adult colonoscope Monitoring: Vital signs and clinical assessment, intermittent blood pressure monitoring, continuous EKG monitoring, Pulse oximetry and Carbon Dioxide monitoring were done throughout the procedure. Please see anesthesia flowsheet. Colon withdrawl time was 34 minutes. Procedure: The patient was placed in the left lateral decubitis position and pre-procedure medications were administered. After a digital rectal examination of the ano-rectum, the video colonoscope was inserted into the rectum and advanced through the colon to the cecum. The colonoscope was slowly withdrawn in a retrograde panoramic fashion and the colon mucosa was carefully examined including a retroflexed view of the rectum. Findings and interventions are described below. Procedure Difficulty: without difficulty Findings: Terminal Ileum: Not evaluated Cecum: A 10 mm polyp versus fold at site of past polypectomy - removed with a cold snare Ascending Colon: Moderate diverticulosis throughout the entire colon Transverse Colon: A 7-8 mm sessile polyp - removed with a cold snare. Residual polyp was removed with a cold bx Moderate diverticulosis throughout the entire colon Descending Colon: Moderate diverticulosis throughout the entire colon Sigmoid Colon: Polypectomy site visualized at 40 cms with a long pedicle. Distal end of the pedicale was removed with a hot snare. Site was closed with 1 hemoclip. A 2 cms pedunculated polyp at 18 cms - removed with a stiff hot snare. Polypectomy site was closed with 2 hemoclips and marked with Meme ink. Severe diverticulosis Rectum: Normal Ano-rectum: Moderate internal hemorrhoids Colon preparation: Good after some irrigation. [place] Bowel Preparation Scale Right colon; 2 Transverse colon: 2 Left colon; 2 (0 = Unprepared colon segment with mucosa not seen due to solid stool that cannot be cleared. 1 = Portion of mucosa of the colon segment seen, but other areas of the colon segment not well seen due to staining, residual stool and/or opaque liquid. 2 = Minor amount of residual staining, small fragments of stool and/or opaque liquid, but mucosa of colon segment seen well. 3 = Entire mucosa of colon segment seen well with no residual staining, small fragments of stool or opaque liquid) Impression and Post Procedure Diagnosis: Colonoscopy Findings: Two medium sized and one small polyps were removed Moderate to severe diverticulosis seen in the entire colon Moderate hemorrhoids on retroflexed exam. Plan: I will send a letter with biopsy results Repeat Colonoscopy in 1-2 years if polyps are adenomatous and 10 year if polyps are hyperplastic. Above findings were reviewed with the patient and relevant handouts were given and the discharge area.
[2024-08-21 10:42] VITALS: BP 121/80; PULSE 53; RESP 16; TEMP 36.1; O2SAT 97
[2024-08-21 10:57] VITALS: BP 122/78; PULSE 47; RESP 16; TEMP 36.1; O2SAT 100
== END 2024-08-21 11:24 | disposition home or self-care (01) ==
PROVIDERS: PCP Internal Medicine; Visit Provider Internal Medicine Gastroenterology
PROC: 0DJD8ZZ Inspection of Lower Intestinal Tract, Via Natural or Artificial Opening Endoscopic (ICD-10-PCS; CPT 45378; principal; 2024-08-21 10:00)
DX: Z12.11 Encounter for screening for malignant neoplasm of colon (principal); Z86.0101 Personal history of adenomatous and serrated colon polyps; D12.5 Benign neoplasm of sigmoid colon; K63.5 Polyp of colon; K57.30 Diverticulosis of large intestine without perforation or abscess without bleeding; K64.8 Other hemorrhoids; K21.9 Gastro-esophageal reflux disease without esophagitis; F41.1 Generalized anxiety disorder; E66.9 Obesity, unspecified; Z68.41 Body mass index [BMI] 40.0-44.9, adult; Z98.890 Other specified postprocedural states; Z88.5 Allergy status to narcotic agent; Z79.1 Long term (current) use of non-steroidal anti-inflammatories (NSAID); Z79.899 Other long term (current) drug therapy
CPT/HCPCS: 45385; 45380; 45381; 88305; J2003; J2704

== ENCOUNTER → 2024-08-21 07:44 | Outpatient (BNV) | payer OTHER, SELFPAY | PROVIDERS: PCP Internal Medicine; Visit Provider Internal Medicine Gastroenterology | DX: K63.5 Polyp of colon (principal) | CPT/HCPCS: 45385 ==

== ENCOUNTER 2024-09-04 07:54 | Outpatient (REF) | payer OTHER, SELFPAY | END 2024-09-04 07:55 | disposition home or self-care (01) | LOC: HO.SH 07:54 | PROVIDERS: Visit Provider Internal Medicine | DX: Z01.118 Encounter for examination of ears and hearing with other abnormal findings (principal); H91.93 Unspecified hearing loss, bilateral | CPT/HCPCS: 92557; 92567 ==

== ENCOUNTER 2025-01-26 08:38 | Outpatient (AMB) | payer OTHER, SELFPAY ==
--- NOTE | 2025-01-26 08:46 | MHC.PC.OV ---
Vital Signs 01/26/25 08:48 Height 5 ft 10 in Weight 238 lb 2 oz BMI 34.2 BP 110/62 Blood Pressure Location Lt brachial Position Sitting Pulse 73 Pulse Source Pulse Oximeter Temp 96.9 F Temp Source Temporal Artery Scan Pulse Oximetry (%) 98 Oxygen Delivery Method Room Air Intake Visit Reasons: LATRELL Intake Note: Patient is here to follow up on LATRELL. Senior Communications Specialist Required: No Acute Care Nursing Assistant: Not Required per policy Accompanied by: Self / Same As Patient Allergies acetaminophen [From Percocet] Allergy (Intermediate, Verified 01/26/25 08:47) pruritus oxycodone [From Percocet] Allergy (Intermediate, Verified 01/26/25 08:47) pruritus Medication List - Last Reconciled 01/26/25 by Rona Kingsley MD alprazolam 0.5 mg PO DAILY 30 days citalopram 40 mg PO DAILY 90 days naproxen sodium (Aleve) 220 mg PO BID PRN zolpidem (Ambien) 10 mg PO BEDTIME PRN Tobacco use date assessed: 01/26/25 Dental Screening Dental Screen Date: 01/26/25 Did you have a dental visit in the last 12 months?: Yes Did you have a dental problem in the last 6 months where you did not have access to dental care?: No Was dental information given to patient?: Patient has dentist [facility] Medical History (Updated 07/28/24 @ 09:39 by Rona Kingsley MD) Colon cancer screening Tear of right biceps muscle Generalized anxiety disorder GERD (gastroesophageal reflux disease) Obesity (BMI 30-39.9) Lumbar degenerative disc disease Surgical History S/P panniculectomy History of hip surgery Hx of tonsillectomy S/P left inguinal herniorrhaphy Family History Mother COPD (chronic obstructive pulmonary disease) Father No problems noted. Maternal Grandmother Breast cancer Lung cancer Maternal Grandfather Leukemia Paternal Grandmother COPD (chronic obstructive pulmonary disease) Other Mental health disorder Social History Housing: House Alcohol intake: current Alcohol intake frequency: holidays/special occasions only Alcohol type: beer Comment: 4 days a week 2 drinks Patient Tobacco Use Status: Never used Tobacco e-Cigarette/Vaping Use: Never Used Second Hand Smoke Exposure: No service: No Current occupational status: employed Cognitive needs: No Hearing needs: No Vision needs: Yes (Glasses/Contacts) Questionnaire PHQ-9 Over the last 2 weeks, how often have you been bothered by any of the following problems? 1. Little interest or pleasure in doing things: several days 2. Feeling down, depressed, or hopeless: nearly every day 3. Trouble falling or staying asleep, or sleeping too much: nearly every day 4. Feeling tired or having little energy: several days 5. Poor appetite or overeating: not at all 6. Feeling bad about yourself - or that you are a failure or have let yourself or your family down: not at all 7. Trouble concentrating on things, such as reading the newspaper or watching television: not at all 8. Moving or speaking so slowly that other people could have noticed. Or the opposite - being so fidgety or restless that you have been moving around a lot more than usual: not at all 9. Thoughts that you would be better off or of hurting yourself in some way: not at all Total score: 8 Depression Screening Interpretation: Positive Depression Screening Done: Yes Source: Developed by Drs. Rohan Bueno, Luda Nails, Sincere Salazar and colleagues, with an educational avinash from [employer]. Thrive Questionnaire Date Thrive assessed: 01/26/25 I am a: Patient What is your living situation today?: I have a steady place to live Within the past 12 months, did the food you bought not last and you didn't have the money to get more?: Never true Within the past 12 months, did you worry whether your food would run out before you got money to buy more?: Never true Do you have trouble paying for medicines?: No Do you have trouble getting transportation to medical appointments?: No Do you have trouble paying your heating and electricity bill?: No Do you have trouble taking care of your child, family member or friend?: No Do you have trouble with day-to-day activities such as bathing, preparing meals, shopping, managing finances, etc.?: No Are you currently unemployed and looking for a job?: No Are you interested in more education?: No Please select the resources that you would like help with: None Currently or been in a relationship where the following occur: No concerns reported THRIVE Score: 0 AUDIT C Alcohol Use Questionnaire (AUDIT-C) 1. How often do you have a drink containing alcohol?: 2-3 times a week 2. How many drinks containing alcohol do you have on a typical day when you are drinking?: 1 or 2 3. How often do you have six or more drinks on one occasion?: Less than monthly Total Score: 4 LATRELL-7 AMB Questionnaire LATRELL-7 Date LATRELL - 7 assessed: 01/26/25 Feeling nervous, anxious, or on edge: 2 = More than half the days Not being able to stop or control worryin = Several days Worrying too much about different things: 1 = Several days Trouble relaxin = Nearly every day Being so restless that it is hard to sit still: 0 = Not at all Becoming easily annoyed or irritable: 3 = Nearly every day Feeling afraid as if something awful might happen: 0 = Not at all Total LATRELL-7 score (0-4 normal; 5-9 mild; 10-14 moderate; 15-21 severe): 10 Source: Developed by Drs. Rohan Bueno, Luda Nails, Sincere Salazar and colleagues, with an educational avinash from [employer]. Physical exam (Primary Care) Vital Signs: Last Vital Signs Temp 96.9 F 01/26/25 08:48 Pulse 73 01/26/25 08:48 BP 110/62 01/26/25 08:48 Pulse Ox 98 01/26/25 08:48 Oxygen Delivery Method Room Air 01/26/25 08:48 BMI result Body Mass Index 34.2 Tobacco/Smoking Status: Tobacco use Status Tobacco use date assessed 01/26/25 01/26/25 08:54 Patient Tobacco Use Status Never used Tobacco 01/26/25 08:54 e-Cigarette/Vaping Use Never Used 01/26/25 08:54 PHQ-9: PHQ-9 Score PHQ-9: Total score 8 01/26/25 09:06 Depression Screening Interpretation: Positive Thrive Assessment: Date of Thrive Assessment Date Thrive assessed 01/26/25 01/26/25 08:54 Currently or been in a relationship where the following occur: No concerns reported Const General: alert; No acute distress Eyes Conjunctivae: conjunctivae normal Resp Auscultation: clear to auscultation bilaterally Cardio Rate: regular rate Rhythm: regular rhythm GI Inspection: Yes normal to inspection Extrem General: Yes normal to inspection and No edema Coding Level of Care Code Est Pt Level 4 (80463) Diagnoses Tubular adenoma of colon D12.6 Generalized anxiety disorder F41.1 Obesity (BMI 30-39.9) E66.9 Assessment & Plan Assessment & Plan (1) Tubular adenoma of colon: Comment: January 2024 Dr. Garcia Code(s): D12.6 - Benign neoplasm of colon, unspecified Category: Medical Plan: Patient on recall list for 2 years (2) Generalized anxiety disorder: Comment: Declined any referral for counseling August Code(s): F41.1 - Generalized anxiety disorder Category: Medical Plan: Continue with citalopram and alprazolam as needed (3) Obesity (BMI 30-39.9): Code(s): E66.9 - Obesity, unspecified Category: Medical Plan: Diet and exercise Plan History of Present Illness The patient is a 49-year-old male presenting for a wellness visit. He has a history of gastroesophageal reflux disease (GERD), managed with current pharmacological therapy including citalopram and alprazolam. He also manages generalized anxiety disorder with these medications. He reports a history of lumbar degenerative disc disease, which intermittently affects his activities. His medical history includes impaired glucose tolerance, routinely monitored with normal blood glucose levels. During a colonoscopy in August 2024, a tubular adenoma was detected, leading to his inclusion on a two-year recall list for monitoring. A recent hearing test in September 2024 identified mild hearing loss, which is currently stable. Health Maintenance - Colonoscopy: Tubular adenoma detected, patient on two-year recall list. - Blood work: Normal complete blood count, renal and liver function tests normal, normal blood glucose, very good cholesterol levels, normal prostate-specific antigen. - Lifestyle: Diet and exercise advised to maintain health. Social History - Obesity is noted and discussed in the context of health maintenance. - Regular management of anxiety and exercise regimen emphasized. - No further specific social determinants of health discussed. Review of Systems - Ears/Hearing: Reports mild hearing loss. Physical Exam Results - Labs: Normal complete blood count, normal renal function, normal liver function, normal blood sugar, very good cholesterol, normal prostate-specific antigen, normal thyroid and folic acid levels. - Tests: Colonoscopy in August 2024 identified a tubular adenoma. Hearing test in September 2024 indicated mild hearing loss. Plan The current management plan will continue with his existing medications for GERD and generalized anxiety disorder, with citalopram and alprazolam. His tubural adenoma observed in the recent colonoscopy indicates the need for monitoring, with a repeat procedure planned in two years. Follow-up blood monitoring for impaired glucose tolerance is advised to catch any developments early. Mild hearing loss will be assessed regularly to ensure there is no progression, while encouraging diet and exercise to address obesity and maintain health. Patient was informed and verbally consented to the use of an ambient scribe for clinic note documentation during this visit. Discussion Notes I discussed with the patient the current status of his health issues, emphasizing the continued use of citalopram and alprazolam for managing GERD and anxiety. We reviewed the colonoscopy findings and the importance of the two-year follow-up for the adenoma. His blood work results were explained, highlighting the normal readings, which support his current management strategy. Hearing loss was acknowledged, with a recommendation for regular evaluation. Approaches to managing obesity through diet and exercise were also discussed. Patient Instructions - Continue current medications as prescribed. - Schedule follow-up colonoscopy in two years. - Maintain routine blood work to monitor glucose levels. - Monitor hearing regularly. - Follow diet and exercise recommendations to support overall health. Medications: Refilled zolpidem (Ambien) 10 mg PO BEDTIME PRN 20 tabs 2RF sleep G47.00 - Insomnia, unspecified
[2025-01-26 08:48] VITALS: BP 110/62; PULSE 73; TEMP 36.1; O2SAT 98; BMI 34.2
== END 2025-01-26 09:13 | disposition home or self-care (01) ==
LOC: HO.HMCH 08:39
PROVIDERS: PCP Internal Medicine; Visit Provider Internal Medicine
DX: D12.6 Benign neoplasm of colon, unspecified (principal); F41.1 Generalized anxiety disorder; E66.9 Obesity, unspecified; Z68.34 Body mass index [BMI] 34.0-34.9, adult